=== PATIENT | female | born 1960 | race Two or more races ===

== ENCOUNTER 2024-09-02 10:32 | Emergency (ER) | payer BC ==
[~2024-09-02] VITALS: Ht 154.9 cm; Wt 68.0 kg
--- NOTE | 2024-09-02 12:22 | ED.PDOC ---
Musculoskeletal HPI Comments A 64 YEAR OLD FEMALE PRESENTS TO THE ED WITH COMPLAINT OF RIGHT UPPER ARM PAIN STATUS POST FALL. PATIENT STATES SHE WAS WALKING IN HER [place] YESTERDAY NIGHT AND SHE ACCIDENTALLY TRIPPED OVER A CHAIR AND LANDED ON HER RIGHT ARM. PATIENT REPORTS SHE IS NOW EXPERIENCING RIGHT UPPER ARM PAIN AND RIGHT INDEX FINGER PAIN THAT IS WORSE WITH MOVEMENT. PATIENT DENIES HEAD INJURY, NECK INJURY, LOC, FEVER, CHILLS, SHORTNESS OF BREATH, CHEST PAIN, ABDOMINAL PAIN, NAUSEA, VOMITING, HEADACHE, OR OTHER COMPLAINTS. NO OTHER SYMPTOMS OR MODIFYING FACTORS AT THIS TIME. PATIENT IS ALERT, ORIENTED X 4, AND HAS STEADY GAIT. Chief Complaint: Fall Injury Time Seen by MD: 10:57 Reviewed Notes: Nurses Notes, Medications, Allergies Allergies: Coded Allergies: Cyclobenzaprine (Verified Allergy, Unknown, 09/02/24) Home Meds Active Scripts Acetaminophen (Tylenol 8 Hour Arthritis) 650 Mg Tab, 650 MG PO TID, #30 TAB Prov:ISAAK THOMAS 09/02/24 Information Source: Patient Mode of Arrival: Ambulatory Location: Right Extremity Location: Arm (UPPER ARM), Finger 2 Timing: Days Prehospital treatment: None Severity: Moderate Able to Move Extremity: Yes Bear Weight: Fully Pain: Moderate Mechanism: Blunt Trauma Circumstances: Fall Onset of Symptoms: After Trauma Symptoms: Pain DVT Risk Factors: NONE Last Tetanus: Unknown Associated signs and symptoms: Arm pain Past Medical History PAST MEDICAL HISTORY: Denies Surgical History: Denies all surgeries [employer]OR [employer] History: No Pertinent [employer]PER[employer] History Family History Family History: Reviewed,noncontributory to illness Social History Smoker: Non-Smoker Alcohol: Denies ETOH Use Drugs: Denies Drug Use Lives In: Home Constitutional: denies: chills, diaphoresis, fatigue, fever, malaise, sweats, weakness, others EENTM: denies: blurred vision, double vision, ear bleeding, ear discharge, ear drainage, ear pain, ear ringing, eye pain, eye redness, hearing loss, mouth pain, mouth swelling, nasal discharge, nose bleeding, nose congestion, nose pain, photophobia, tearing, throat pain, throat swelling, voice changes, others Respiratory: denies: cough, hemoptysis, orthopnea, SOB at rest, shortness of breath, SOB with excertion, stridor, wheezing, others Cardiovascular: denies: chest pain, dizzy spells, diaphoresis, Dyspnea on exertion, edema, irregular heart beat, left arm pain, lightheadedness, palpitations, PND, syncope, others Gastrointestinal: denies: abdomen distended, abdominal pain, blood streaked bowels, constipated, diarrhea, dysphagia, difficulty swallowing, hematemesis, melena, nausea, poor appetite, poor fluid intake, rectal bleeding, rectal pain, vomiting, others Genitourinary: denies: abnormal vagina bleeding, burning, dyspareunia, dysuria, flank pain, frequency, hematuria, incontinence, pain, , vagina discharge, urgency, others Neurological: denies: dizziness, fainting, headache, left sided numbness, left sided weakness, numbness, paresthesia, pre-existing deficit, right sided numbness, right sided weakness, seizure, speech problems, tingling, tremors, weakness, others Musculoskeletal: reports: joint pain, joint swelling, muscle pain, others (RIGHT UPPER ARM PAIN, RIGHT INDEX FINGER PAIN); denies: back pain, gout, muscle stiffness, neck pain Integumetry: denies: bruises, change in color, change in hair/nails, dryness, laceration, lesions, lumps, rash, wounds, others Allergic/Immunocompromised: denies: Difficulty Healing, Frequent Infections, Hives, Itching, others Hematologic/Lymphatic: denies: anemia, blood clots, easy bleeding, easy bruisi ng, swollen glands, others Endocrine: denies: excessive hunger, excessive sweating, excessive thirst, exce ssive urination, flushing, intolerance to cold, intolerance to heat, unexplained weight gain, unexplained weight loss, others Psychiatric: denies: anxiety, bipolar disorder, depression, hopeless, panic disorder, schizophrenia, sleepless, suicidal, others All Other Systems: Reviewed and Negative Physical Exam General Appearance: No Apparent Distress, Normal HEENT: Normal ENT Inspection, PERRL/EOMI, Pharynx Normal, TMs Normal Neck: Full Range of Motion, Non-Tender, Normal, Normal Inspection Respiratory: Chest Non-Tender, Lungs Clear, No Accessory Muscle Use, No Respiratory Distress, Normal Breath Sounds Cardiovascular: No Edema, No JVD, No Murmur, No Gallop, Normal Peripheral Pulses, Regular Rate/Rhythm Breast Exam: Deferred Gastrointestinal: No Organomegaly, Non Tender, No Pulsatile Mass, Normal Bowel Sounds, Soft Genitalia: Deferred Pelvic: Deferred Rectal: Deferred Extremities: Decreased range of motion (SLIGHTLY. ), No calf tenderness, Normal capillary refill, Normal inspection, No pedal edema, Swelling (BONY TENDERNESS AND MILD SWELLING ON RIGHT INDEX FINGER, NO DEFORMITY. ), Tender (AND MUSCLE TIGHTNESS ON RIGHT ARM, NO BONY TENDERNESS, SWELLING AND DEFORMITY. 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 Was a procedure done?: No Differential Diagnosis EXT Differential Diagnosis: Fracture, Sprain, Dislocation, Contusion, Strain, Bursitis X-Ray, Labs, Meds, VS Vital Signs Date Time Temp Pulse Resp B/P (MAP) Pulse Ox O2 Delivery O2 Flow Rate FiO2 09/02/24 12:26 97.9 102 16 175/102 (126) 97 97.9 09/02/24 12:26 102 16 97 Room Air 09/02/24 10:43 97.9 102 16 175/102 (126) 97 Right 2nd digit radiograph CLINICAL INDICATION: FALL TECHNIQUE: 3 radiographic views of the right 2nd digit were obtained. Comparison: None FINDINGS: Diffuse soft tissue swelling about the second digit. Avulsion fracture at base of distal second phalanx. IMPRESSION: Diffuse soft tissue swelling about the second digit. Avulsion fracture at base of distal second phalanx. ATED BY: DARIEL GUILLORY MD DICTATED DATE/TIME: 09/02/24 1346 SIGNED BY: DARIEL GUILLORY MD SIGNED DATE/TIME: 09/02/24 1346 CC: CLINICAL INDICATION: FALL TECHNIQUE: XY R HUMERUS XRAY. 2 v Comparison: None FINDINGS/IMPRESSION: There is no evidence of acute fracture or dislocation. The visualized joint space is well maintained. The alignment is anatomical. There is no radiopaque foreign body. ATED BY: DARIEL GUILLORY MD DICTATED DATE/TIME: 09/02/24 134 SIGNED BY: DARIEL GUILLORY MD SIGNED DATE/TIME: 09/02/241341 CC: X-Ray, Labs, Meds, VS Comment EXTERNAL NOTES: NONE LABS ORDERED: NONE REVIEWED AND INTERPRETED RESULTS: NONE IMAGING ORDERED: XR HUMERUS RT, XR HAND RT INDEPENDENT HISTORIANS: NONE TREATMENTS ORDERED: FROG SPLINT APPLIED TO THE PATIENT'S RIGHT INDEX FINGER. PATIENT'S CASE AND RESULTS HAVE BEEN DISCUSSED WITH THE ED ATTENDING PHYSICIAN AND THEY AGREE WITH MY PLAN OF CARE. I HAVE DISCUSSED IMAGING RESULTS WITH PATIENT AND HAVE INSTRUCTED THEM TO FOLLOW UP WITH THEIR PCP IN 1-2 DAYS. THE PATIENT FULLY UNDERSTANDS THEIR RESULTS AND ARE AWARE THEY NEED TO FOLLOW UP WITH THEIR PCP FOR FURTHER EVALUATION IF THEIR SYMPTOMS PERSIST. Images Reviewed?: Images reviewed and evaluated by me Time of 1ST Reevaluation: 14:04 Reevaluation 1ST: Improved Patient Education/Counseling: Diagnosis, Treatment, Need For Follow Up Family Education/Counseling: Diagnosis, Treatment, Need For Follow Up Medical Screening: No EMC Exist At This Time Departure 1 Departure Time of Disposition: 14:04 Impression: Primary Impression: Muscle strain of right upper arm Qualified Codes: S46.911A - Strain of unspecified muscle, fascia and tendon at shoulder and upper arm level, right arm, initial encounter Additional Impression: Avulsion fracture of distal phalanx of finger Qualified Codes: S62.639A - Displaced fracture of distal phalanx of unspecified finger, initial encounter for closed fracture Disposition: 01 HOME / SELF CARE / HOMELESS Condition: Stable Additional Instructions: FOLLOW-UP WITH PCP IN 1 TO 2 DAYS. TAKE MEDICATIONS PRESCRIBED. RETURN TO ED FOR ANY NEW OR WORSENING SYMPTOMS. e-Prescriptions Acetaminophen (Tylenol 8 Hour Arthritis) 650 Mg Tab 650 MG PO TID, #30 TAB Prov: ISAAK THOMAS 09/02/24 Discharged With: Self Critical Care Note Critical Care Time?: No Stability Stability form required: No I personally scribed for ISAAK THOMAS ([email or web address]) on 09/02/24 at 12:22. Electronically submitted by Haresh Eli ([email or web address]). I personally scribed for ISAAK THOMAS ([email or web address]) on 09/02/24 at 13:49. Electronically submitted by Haresh Eli ([email or web address]). I personally scribed for ISAAK THOMAS ([email or web address]) on 09/02/24 at 13:58. Electronically submitted by Haresh Eli ([email or web address]). ISAAK THOMAS Sep 02, 2024 12:22
[2024-09-02 12:26] VITALS: BP 175/102; PULSE 102; RESP 16; TEMP 97.9; O2SAT 97
--- NOTE | 2024-09-02 13:45 | DVH ---
CLINICAL INDICATION: FALL TECHNIQUE: XY R HUMERUS XRAY. 2 v Comparison: None FINDINGS/IMPRESSION: There is no evidence of acute fracture or dislocation. The visualized joint space is well maintained. The alignment is anatomical. There is no radiopaque foreign body.
--- NOTE | 2024-09-02 13:48 | DVH ---
Right 2nd digit radiograph CLINICAL INDICATION: FALL TECHNIQUE: 3 radiographic views of the right 2nd digit were obtained. Comparison: None FINDINGS: Diffuse soft tissue swelling about the second digit. Avulsion fracture at base of distal second phala nx. IMPRESSION: Diffuse soft tissue swelling about the second digit. Avulsion fracture at base of distal second phala nx.
[2024-09-02] MEDS ORDERED: ACET-1080 PO (13:57)
== END 2024-09-02 14:02 | disposition home or self-care (01) ==
LOC: ER 10:32
DX: S60.021A Contusion of right index finger without damage to nail, initial encounter (principal); S46.811A Strain of other muscles, fascia and tendons at shoulder and upper arm level, right arm, initial encounter; Z88.8 Allergy status to other drugs, medicaments and biological substances; W01.0XXA Fall on same level from slipping, tripping and stumbling without subsequent striking against object, initial encounter; Y93.01 Activity, walking, marching and hiking; Y92.89 Other specified places as the place of occurrence of the external cause; Y99.8 Other external cause status
CPT/HCPCS: 29130; 73060; 73140